=== PATIENT | female | born 1975 | race Two or more races ===

== ENCOUNTER 2019-08-26 12:20 | Emergency (ER) | payer OTHER ==
[~2019-08-26] VITALS: Ht 149.9 cm; Wt 86.9 kg
[2019-08-26 12:26] VITALS: BP 149/92
[2019-08-26] MEDS ORDERED: DIPH,PERTUSS(ACELL),TET VAC/PF 0.5 ML IM-VACC ONE ×2 (12:44→13:00)
[2019-08-26] MEDS ORDERED: LIDOCAINE-MPF 1%, 5ML ONE (12:44)
[2019-08-26] MEDS ORDERED: LIDOCAINE-MPF 1%, 5ML INFIL ONE (13:00)
== END 2019-08-26 14:46 | disposition home or self-care (01) ==
LOC: ED 13:07
DX: S61.441A Puncture wound with foreign body of right hand, initial encounter (principal); X58.XXXA Exposure to other specified factors, initial encounter; Y93.89 Activity, other specified; Y92.89 Other specified places as the place of occurrence of the external cause; Y99.8 Other external cause status
CPT/HCPCS: 10120; 90471; 90715; 99285